=== PATIENT | male | born 1965 ===

== ENCOUNTER 2017-12-26 21:24 | Emergency (ER) | payer OTHER ==
[2017-12-26 21:33] VITALS: BP 136/88; PULSE 83; TEMP 97.8; O2SAT 97
--- NOTE | 2017-12-26 21:59 | C.PDOC ---
History Of Present Illness 52 y/o male presents to the ED for evaluation of dysuria and penile discharge which began yesterday. Patient spoke with his PMD and was prescribed ciprofloxacin, which he started today but states that his symptoms still persist. Patient states he experienced similar symptoms in 2012 when he was admitted for IV antibiotics and was diagnosed with an "infection." Patient notes he is sexually active with his and denies any new partners. Patient denies fever, chills, nausea, vomiting, abdominal pain, testicular pain, or history of prostate issues. Time Seen by Provider: 12/26/17 21:57 Chief Complaint (Nursing): Male Genitourinary History Per: Patient History/Exam Limitations: no limitations Onset/Duration Of Symptoms: Hrs Current Symptoms Are (Timing): Still Present Associated Symptoms: Urinary Symptoms (dysuria ), Other (penile discharge ). denies: Fever, Chills, Nausea, Vomiting Additional History Per: Patient Past Medical History Reviewed: Historical Data, Nursing Documentation, Vital Signs Vital Signs: Last Vital Signs Temp 97.8 F 12/26/17 21:29 Pulse 83 12/26/17 21:29 Resp 20 12/26/17 23:35 BP 136/88 12/26/17 21:29 Pulse Ox 97 12/27/17 02:16 - Medical History PMH: No Chronic Diseases Surgical History: No Surg Hx Family History: States: Unknown Family Hx - Social History Hx Alcohol Use: No Hx Substance Use: No - Immunization History Hx Tetanus Toxoid Vaccination: No Hx Influenza Vaccination: No Hx Pneumococcal Vaccination: No Review Of Systems Constitutional: Negative for: Fever, Chills Gastrointestinal: Negative for: Nausea, Vomiting, Abdominal Pain Genitourinary: Positive for: Dysuria, Penile Discharge. Negative for: Other ( testicular pain ) Physical Exam - Physical Exam Appears: Non-toxic, No Acute Distress Skin: Normal Color, Warm, Dry Head: Atraumatic, Normacephalic Eye(s): bilateral: Normal Inspection, EOMI Nose: Normal Oral Mucosa: Moist Neck: Normal ROM, Supple Chest: Symmetrical, No Deformity, No Tenderness Cardiovascular: Rhythm Regular Respiratory: Normal Breath Sounds, No Rales, No Rhonchi, No Wheezing Gastrointestinal/Abdominal: Soft, No Tenderness, No Guarding, No Rebound Male Genital: No Testicular Tenderness, No Testicular Swelling, Circumcised, Other (Chaperpone: Jalen Coronel RN) Extremity: Normal ROM, Capillary Refill (less than 2 seconds ) Neurological/Psych: Oriented x3, Normal Speech, Normal Cognition Gait: Steady ED Course And Treatment O2 Sat by Pulse Oximetry: 97 (on RA) Pulse Ox Interpretation: Normal Progress Note: UA ordered and reviewed. Patient reports he has a "penicillin allergy", stating that he experienced vomiting a few years ago but denies lip/ tongue swelling, rash, or difficulty breathing at the time. Benadryl PO, Rocephin IM, Zithromax PO administered. On reassessment, patient is resting comfortably, showing no signs of distress and is stable for discharge with Rx. He is advised to continue taking ciprofloxacin as prescribed by his PMD. Adivsed to f/u with his PMD and urologist within 1-2 days for further evaluation. Disposition - Disposition Referrals: Pavel Haque MD [Staff Provider] - Disposition: HOME/ ROUTINE Disposition Time: 22:59 Condition: STABLE Additional Instructions: Continue your antibiotics. Follow up with urologist in 1-2 days. Return to ER if symptoms persist or worsen. Prescriptions: Phenazopyridine HCl [Pyridium] 100 mg PO TID #6 tablet Instructions: Urinary Tract Infection in Men (ED) Forms: [facility] (Sami) - Clinical Impression Clinical Impression: Urethritis - PA / [employer] / Resident Statement MD/DO has reviewed & agrees with the documentation as recorded. - Scribe Statement The provider has reviewed the documentation as recorded by the Scribe (Britney Riley) All medical record entries made by the Scribe were at my direction and personally dictated by me. I have reviewed the chart and agree that the record accurately reflects my personal performance of the history, physical exam, medical decision making, and the department course for this patient. I have also personally directed, reviewed, and agree with the discharge instructions and disposition.
[2017-12-26 22:17] LABS: URINE BILIRUBIN NEGATIVE (NEGATIVE); URINE BLOOD NEGATIVE (NEGATIVE); URINE CLARITY Clear (Clear); URINE COLOR Colorless (YELLOW); URINE GLUCOSE (UA) NORMAL (Normal); URINE LEUKOCYTE ESTERASE 3+ Leu/uL (Negative); URINE NITRATE NEGATIVE (NEGATIVE); URINE PROTEIN NEGATIVE (NEGATIVE); URINE UROBILINOGEN NORMAL mg/dL (0.2-1.0)
[2017-12-26 22:21] LABS: URINE BACTERIA FEW (<OCC)
[2017-12-26] MEDS ORDERED: cefTRIAXone (Rocephin) 250 mg Inj IM STA (22:46)
[2017-12-26 23:36] VITALS: RESP 20
== END 2017-12-26 23:35 | disposition home or self-care (01) ==
LOC: C.ER 21:24
DX: N34.2 Other urethritis (principal)
CPT/HCPCS: 81001; 87086; 87491; 87591; 96372; 99284; J0696